=== PATIENT | female | born 1965 | race Asian ===

== ENCOUNTER 2025-02-04 05:41 | Emergency (ER) | payer OTHER ==
[~2025-02-04] VITALS: Ht 154.9 cm; Wt 61.8 kg
[2025-02-04 05:50] VITALS: TEMP 98.1
[2025-02-04 06:50] VITALS: BP 111/58; PULSE 75; RESP 16; O2SAT 98
[2025-02-04] MEDS ORDERED: PRED-554 PO (07:10)
[2025-02-04] MEDS ORDERED: DIPH25CA85 PO (07:11)
== END 2025-02-04 07:45 | disposition home or self-care (01) ==
LOC: EMS 05:44
DX: L25.9 Unspecified contact dermatitis, unspecified cause (principal); E03.9 Hypothyroidism, unspecified; I10 Essential (primary) hypertension; Z90.49 Acquired absence of other specified parts of digestive tract; Z90.89 Acquired absence of other organs
CPT/HCPCS: 99283; 96372; J1200; J7512